=== PATIENT | female | born 1975 | race Caucasian/White ===

== ENCOUNTER 2019-08-31 14:21 | Emergency (ER) | payer OTHER ==
[~2019-08-31] VITALS: Ht 165.1 cm; Wt 86.0 kg
[2019-08-31] MEDS ORDERED: IV NORMAL SALINE 1000ML BAG 1,000 ML IV ONE (14:45)
[2019-08-31] MEDS ORDERED: MECLIZINE HCL 12.5 MG TABLET. PO ONE (14:45)
[2019-08-31 14:57] LABS: CLARITY,URINE CLEAR; COLOR,URINE ORANGE
[2019-08-31 14:58] LABS: BASO % 0 % (0-3); EOS % 1 % (0-3); HEMATOCRIT 45.1 % (36.0-47.0); HEMOGLOBIN 15.5 g/dL (12.0-15.5); LYMPH # 2.2 x10^3/uL (1.0-4.8); LYMPH % 26 % (24-48); MEAN CORPUSCULAR HEMOGLOBIN 32 pg (25-35); MEAN CORPUSCULAR HGB CONC 34 g/dL (31-37); MEAN CORPUSCULAR VOLUME 93 fL (79-100); MONO # 0.5 x10^3/uL (0.0-1.1); MONO % 6 % (0-9); NEUT # 5.6 x10^3/uL (1.8-7.7); NEUT % 67 % (31-73); PLATELET COUNT 298 x10^3/uL (140-400); RED BLOOD COUNT 4.85 x10^6/uL (3.50-5.40); RED CELL DISTRIBUTION WIDTH 15.5 % (11.5-14.5); WHITE BLOOD COUNT 8.4 x10^3/uL (4.0-11.0)
[2019-08-31 15:01] LABS: BACTERIA,URINE FEW /HPF (0-FEW); BARBITURATES NEG (NEG); BENZODIAZEPINES POS (NEG); CANNABINOIDS POS (NEG); COCAINE POS (NEG); METHADONE NEG (NEG); OPIATES POS (NEG); PHENCYCLIDINE NEG (NEG); SQUAMOUS EPITHELIAL CELL,UR MOD /LPF
[2019-08-31 15:05] LABS: CALCIUM 9.3 mg/dL (8.5-10.1); GFR 60.8; HYALINE CASTS, URINE FEW /HPF; POTASSIUM 3.8 mmol/L (3.5-5.1); RBC,URINE 0 /HPF (0-2)
[2019-08-31 15:08] LABS: AMPHETAMINE/METHAMPHETAMINE POS (NEG); PROTHROMBIN TIME PATIENT 13.4 SEC (11.7-14.0)
[2019-08-31 15:10] LABS: ALBUMIN 4.3 g/dL (3.4-5.0); ALBUMIN/GLOBULIN RATIO 1.3 (1.0-1.7); TOTAL BILIRUBIN 0.4 mg/dL (0.2-1.0); TOTAL PROTEIN 7.6 g/dL (6.4-8.2)
--- NOTE | 2019-08-31 15:16 | EKG ---
[address] [place] [address] Test Date: 2019-08-31 Test Time: 15:01:21 Pat Name: KATELYNN MAST Department: Room: Gender: F Associate Buyer: : 1975 Requested By: EDWARDO MCDONALD Order Number: [id number] Reading MD: Mohan Crenshaw Measurements Intervals [place] Rate: 122 P: 28 GA: 114 QRS: 12 QRSD: 88 T: 36 QT: 328 QTc: 469 Interpretive Statements SINUS TACHYCARDIA INCOMPLETE RIGHT BUNDLE BRANCH BLOCK Electronically Signed On 09-01-2019 8:00:12 CDT by Mohan Crenshaw
--- NOTE | 2019-08-31 15:18 | RAD ---
CT HEAD INDICATION: Altered mental status, dizziness COMPARISON: None Available. Exposure: One or more of the following individualized dose reduction techniques were utilized for this examination: 1. Automated exposure control 2. Adjustment of the mA and/or kV according to patient size 3. Use of iterative reconstruction technique TECHNIQUE: 5 mm contiguous axial images were obtained from the skull base to the vertex in both bone and soft tissue algorithm. FINDINGS: No abnormal attenuation within the brain parenchyma. No evidence of acute intracranial hemorrhage. No extra-axial fluid collections. No mass effect or midline shift. Ventricular size is appropriate. Basal cisterns are patent. No fractures identified.Costa-white differentiation is preserved.Globes and orbits are within normal limits. Paranasal sinuses and mastoid air cells are clear. IMPRESSION: No acute intracranial findings. Electronically signed by: Shubham Soria MD (08/31/2019 3:14 PM) [id number]
--- NOTE | 2019-08-31 15:28 | RAD ---
PORTABLE CHEST 1V Clinical indications: Altered mental status. Difficulty breathing. COMPARISON: None available. Findings: There is a right upper lobe nodular density. No other acute lung infiltrate or pleural effusion or pulmonary edema or lung mass or pneumothorax is seen. Surgical clips of the right hilum are seen. The heart size, pulmonary vasculature, mediastinum and both macrina are unremarkable. Impression: No acute radiographic abnormality is seen. However, there is a nodular density of the right upper lobe. This could be due to overlying anterior first rib or could be due to a lung nodule. Recommend outpatient chest CT with IV contrast for further evaluation. Electronically signed by: Vamshi Kaminski MD (08/31/2019 3:25 PM) [facility] [place]
[2019-08-31] MEDS ORDERED: cloNIDine HCL 0.1 MG TABLET PO ONE (16:00)
--- NOTE | 2019-08-31 16:12 | PHYS DOC ---
Past Medical History Past Medical History: Diabetes-Type II, Hypertension Additional Past Medical Histor: lymphoma Past Surgical History: Other Additional Past Surgical Histo: 2 biopsies r/t lymphoma Smoking Status: Current Some Day Smoker Alcohol Use: Occasionally General Adult EDM: Chief Complaint: DIZZY/LIGHT HEADED HPI: HPI: Patient is a 43 year old female with a history of diabetes type 2, hypertension, who presents to the ED today to be evaluated for lightheadedness and dizziness. Patient reports this morning she was lightheaded and dizzy, she states she could not remember anything after that other than EMS picking her up from home. EMS reports patient was picked up from a home that is notorious for drug users. She denies any use of drugs right now. Patient denies any known exacerbating or relieving factors to her symptoms. Review of Systems: Review of Systems: Constitutional: Denies fever or chills. [] Eyes: Denies change in visual acuity. [] HENT: Denies nasal congestion or sore throat. [] Respiratory: Denies cough or shortness of breath. [] Cardiovascular: Denies chest pain or edema. [] GI: Denies abdominal pain, nausea, vomiting, bloody stools or diarrhea. [] : Denies dysuria. [] Musculoskeletal: Denies back pain or joint pain. [] Integument: Denies rash. [] Neurologic: Reports lightheadedness and dizziness. Denies headache, focal weakness or sensory changes. [] Psychiatric: Denies depression or anxiety. [] Heart Score: Risk Factors: Risk Factors: DM, Current or recent (<one month) smoker, HTN, HLP, family history of CAD, obesity. Risk Scores: Score 0 - 3: 2.5% MACE over next 6 weeks - Discharge Home Score 4 - 6: 20.3% MACE over next 6 weeks - Admit for Clinical Observation Score 7 - 10: 72.7% MACE over next 6 weeks - Early Invasive Strategies Current Medications: Current Medications Medications (Trade) Dose Ordered Sig/Gayle Start Time Stop Time Status Last Admin Dose Admin Clonidine HCl (Catapres) 0.2 mg 1X ONCE 08/31/19 16:00 08/31/19 16:01 08/31/19 16:00 0.2 MG Meclizine HCl (Antivert) 12.5 mg 1X ONCE 08/31/19 14:45 08/31/19 15:16 DC 08/31/19 15:40 12.5 MG Sodium Chloride 1,000 ml @ 1,000 mls/hr 1X ONCE 08/31/19 14:45 08/31/19 15:44 DC 08/31/19 15:17 1,000 MLS/HR Allergies: Allergies: Allergies Coded Allergies Type Severity Reaction Last Updated Verified Penicillins Allergy Unknown 08/31/19 Yes Physical Exam: PE: Constitutional: Well developed, well nourished, no acute distress, non-toxic appearance. [] HENT: Normocephalic, atraumatic, bilateral external ears normal, oropharynx moist, no oral exudates, nose normal. [] Eyes: PERRLA, EOMI, conjunctiva normal, no discharge. [] Neck: Normal range of motion, no tenderness, supple, no stridor. [] Cardiovascular:Heart rate regular rhythm, no murmur [] Lungs & Thorax: Bilateral breath sounds clear to auscultation [] Abdomen: Bowel sounds normal, soft, no tenderness, no masses, no pulsatile masses. [] Skin: Warm, dry, no erythema, no rash. [] Back: No tenderness, no CVA tenderness. [] Extremities: No tenderness, no cyanosis, no clubbing, ROM intact, no edema. [] Neurologic: Alert and oriented X 3, normal motor function, normal sensory function, no focal deficits noted. Cranial nerves II through XII intact Psychologic: Affect normal, judgement normal, mood normal. [] Current Patient Data: Labs: Laboratory Tests Test 08/31/19 14:44 White Blood Count 8.4 x10^3/uL (4.0-11.0) Red Blood Count 4.85 x10^6/uL (3.50-5.40) Hemoglobin 15.5 g/dL (12.0-15.5) Hematocrit 45.1 % (36.0-47.0) Mean Corpuscular Volume 93 fL (79-100) Mean Corpuscular Hemoglobin 32 pg (25-35) Mean Corpuscular Hemoglobin Concent 34 g/dL (31-37) Red Cell Distribution Width 15.5 % (11.5-14.5) H Platelet Count 298 x10^3/uL (140-400) Neutrophils (%) (Auto) 67 % (31-73) Lymphocytes (%) (Auto) 26 % (24-48) Monocytes (%) (Auto) 6 % (0-9) Eosinophils (%) (Auto) 1 % (0-3) Basophils (%) (Auto) 0 % (0-3) Neutrophils # (Auto) 5.6 x10^3/uL (1.8-7.7) Lymphocytes # (Auto) 2.2 x10^3/uL (1.0-4.8) Monocytes # (Auto) 0.5 x10^3/uL (0.0-1.1) Eosinophils # (Auto) 0.0 x10^3/uL (0.0-0.7) Basophils # (Auto) 0.0 x10^3/uL (0.0-0.2) Prothrombin Time 13.4 SEC (11.7-14.0) Prothrombin Time INR 1.1 (0.8-1.1) Urine Collection Type Unknown Urine Color Rawlings Urine Clarity Clear Urine pH (<5.0-8.0) Urine Specific [place] (1.000-1.030) Urine Protein mg/dL (NEG-TRACE) Urine Glucose (UA) mg/dL (NEG) Urine Ketones (Stick) mg/dL (NEG) Urine Blood (NEG) Urine Nitrite (NEG) Urine Bilirubin (NEG) Urine Urobilinogen Dipstick mg/dL (0.2 mg/dL) Urine Leukocyte Esterase (NEG) Urine RBC 0 /HPF (0-2) Urine WBC 1-4 /HPF (0-4) Urine Squamous Epithelial Cells Mod /LPF Urine Bacteria Few /HPF (0-FEW) Urine Hyaline Casts Few /HPF Urine Mucus Marked /LPF Sodium Level 135 mmol/L (136-145) L Potassium Level 3.8 mmol/L (3.5-5.1) Chloride Level 100 mmol/L (98-107) Carbon Dioxide Level 20 mmol/L (21-32) L Anion Gap 15 (6-14) H Blood Urea Nitrogen 22 mg/dL (7-20) H Creatinine 1.0 mg/dL (0.6-1.0) Estimated GFR (Cockcroft-Gault) 60.8 BUN/Creatinine Ratio 22 (6-20) H Glucose Level 134 mg/dL (70-99) H Calcium Level 9.3 mg/dL (8.5-10.1) Magnesium Level 2.0 mg/dL (1.8-2.4) Total Bilirubin 0.4 mg/dL (0.2-1.0) Aspartate Amino Transferase (AST) 24 U/L (15-37) Alanine Aminotransferase (ALT) 38 U/L (14-59) Alkaline Phosphatase 62 U/L (46-116) Creatine Kinase 133 U/L (26-192) Creatine Kinase MB (Mass) 1.9 ng/mL (0.0-3.6) Creatine Kinase MB Relative Index 1.4 % (0-4) Troponin I Quantitative < 0.017 ng/mL (0.000-0.055) IL-Gjz-R-Type Natriuretic Peptide 54 pg/mL (0-124) Total Protein 7.6 g/dL (6.4-8.2) Albumin 4.3 g/dL (3.4-5.0) Albumin/Globulin Ratio 1.3 (1.0-1.7) Lipase 137 U/L (73-393) Thyroid Stimulating Hormone (TSH) 2.137 uIU/mL (0.358-3.74) Urine Opiates Screen Pos (NEG) Urine Methadone Screen Neg (NEG) Urine Barbiturates Neg (NEG) Urine Phencyclidine Screen Neg (NEG) Urine Amphetamine/Methamphetamine Pos (NEG) Urine Benzodiazepines Screen Pos (NEG) Urine Cocaine Screen Pos (NEG) Urine Cannabinoids Screen Pos (NEG) Ethyl Alcohol Level < 10 mg/dL (0-10) Urine Ethyl Alcohol Neg (NEG) Laboratory Tests 08/31/19 14:44 Laboratory Tests 08/31/19 14:44 Vital Signs: Vital Signs Date Time Temp Pulse Resp B/P (MAP) Pulse Ox O2 Delivery O2 Flow Rate FiO2 08/31/19 16:00 194/119 08/31/19 15:30 118 08/31/19 14:29 97.8 16 94 Room Air 97.8 EKG: EK interpreted by Dr. Barraza sinus tachycardia HR 122 no STEMI Radiology/Procedures: Radiology/Procedures: []PROCEDURE: PORTABLE CHEST 1V PORTABLE CHEST 1V Clinical indications: Altered mental status. Difficulty breathing. COMPARISON: None available. Findings: There is a right upper lobe nodular density. No other acute lung infiltrate or pleural effusion or pulmonary edema or lung mass or pneumothorax is seen. Surgical clips of the right hilum are seen. The heart size, pulmonary vasculature, mediastinum and both macrina are unremarkable. Impression: No acute radiographic abnormality is seen. However, there is a nodular density of the right upper lobe. This could be due to overlying anterior first rib or could be due to a lung nodule. Recommend outpatient chest CT with IV contrast for further evaluation. Electronically signed by: Keerthi Kaminski MD (08/31/2019 3:25 PM) [facility] [place] and SIGNED BY: KEERTHI KAMINSKI MD DATE: 08/31/19 1525 PROCEDURE: CT HEAD WO CONTRAST CT HEAD INDICATION: Altered mental status, dizziness COMPARISON: None Available. Exposure: One or more of the following individualized dose reduction techniques were utilized for this examination: 1. Automated exposure control 2. Adjustment of the mA and/or kV according to patient size 3. Use of iterative reconstruction technique TECHNIQUE: 5 mm contiguous axial images were obtained from the skull base to the vertex in both bone and soft tissue algorithm. FINDINGS: No abnormal attenuation within the brain parenchyma. No evidence of acute intracranial hemorrhage. No extra-axial fluid collections. No mass effect or midline shift. Ventricular size is appropriate. Basal cisterns are patent. No fractures identified.Costa-white differentiation is preserved.Globes and orbits are within normal limits. Paranasal sinuses and mastoid air cells are clear. IMPRESSION: No acute intracranial findings. Electronically signed by: Shubham Soria MD (08/31/2019 3:14 PM) [id number] DICTATED and SIGNED BY: SHUBHAM SORIA MD DATE: 08/31/19 1514 Course & Med Decision Making: Course & Med Decision Making Pertinent Labs and Imaging studies reviewed. (See chart for details) This is a 43-year-old female patient presenting to the ED today complaining of dizziness and lightheadedness that began this morning. Per EMS reported this patient was picked up from a house known for drug use. Patient is alert and oriented x4 on arrival to the ED, vitals on arrival temperature 97.8, heart rate 132, respirations 16 on room air, blood pressure 186/109 with O2 sats was 94% on room air, she reports history of high blood pressure and believes she takes a tiny pill that she thinks is lisinopril CT of the head is negative. CBC with no acute findings, CMP noted for dehydration, otherwise no acute findings. Chest x-ray is negative for any acute findings, urine drug screen was noted for opiates use, marijuana use, methamphetamine use, benzodiazepam use, cocaine use. Patient currently admits to drug use but states she does not need any help. Patient was discharged home. Follow-up with her own PCP in 1 week. Recommended getting help for drug use which she continues to deny she needs help with Dragon Disclaimer: Dragon Disclaimer: This electronic medical record was generated, in whole or in part, using a voice recognition dictation system. Departure Departure Impression: Primary Impression: Dizziness Additional Impressions: Drug abuse HTN (hypertension) Qualified Codes: I10 - Essential (primary) hypertension Disposition: HOME, SELF-CARE Condition: STABLE Referrals: UNKNOWN PCP NAME (PCP) follow up with [facility] [place] and your primary care doctor in one week Patient Instructions: Dizziness, [id number], Drug Abuse, FAQs Additional Instructions: You were evaluated in the emergency room and noted to use a lot of drugs. Please consider getting help. Please follow-up with your primary care doctor in the next one week EDWARDO MCDONALD APRN August 31, 2019 16:12
[2019-08-31 16:22] VITALS: BP 150/85
--- NOTE | 2019-09-01 06:57 | EKG ---
[facility] [address] [place] [address] Test Date: 2019-08-31 Test Time: 15:54:35 Pat Name: KATELYNN MAST Department: Room: Gender: F Athletic Coordinator: : 1975 Requested By: EDWARDO MCDONALD Order Number: [id number] Reading MD: Mohan Crenshaw Measurements Intervals [place] Rate: 79 P: 36 ND: 186 QRS: 27 QRSD: 62 T: 52 QT: 340 QTc: 391 Interpretive Statements SINUS RHYTHM LOW LIMB LEAD VOLTAGE Electronically Signed On 09-01-2019 8:00:30 CDT by Mohan Crenshaw
== END 2019-08-31 17:04 | disposition home or self-care (01) ==
LOC: ER 14:21
DX: R42 Dizziness and giddiness (principal); F19.10 Other psychoactive substance abuse, uncomplicated; I10 Essential (primary) hypertension; E11.9 Type 2 diabetes mellitus without complications; Z98.890 Other specified postprocedural states; Z87.891 Personal history of nicotine dependence
CPT/HCPCS: 36415; 70450; 71045; 80053; 80307; 81001; 82553; 83690; 83735; 83880; 84443; 84484; 85025; 85610; 93005; 96360; 99285; G0480; J7030; J8597